=== PATIENT | male | born 1995 | race Caucasian/White ===

== ENCOUNTER 2022-01-16 14:29 | Emergency (ER) | payer BC, SELFPAY ==
[2022-01-16 14:42] VITALS: BP 118/74; PULSE 80; RESP 16; TEMP 37.1; O2SAT 99
--- NOTE | 2022-01-16 14:46 | ED.URI ---
HPI - URI/Sore Throat General Chief Complaint: Upper Respiratory Infection Stated Complaint: congestion, cough,runny nose, headache Time Seen by Provider: 01/16/22 14:45 Source: patient, RN notes reviewed and old records reviewed Mode of arrival: ambulatory Limitations: no limitations History of Present Illness HPI Narrative: 26-year-old male presents to [facility] with complaints of chest and nasal congestion, productive cough and some headache which started yesterday. Patient states he is taking ibuprofen and cough drops for his symptoms. Patient has been COVID vaccinated but has not had Flu shot this year.He states that he was at an event this past weekend in [place] at his sisters wedding, concerned may of been exposed to COVID or Flu. Patient reports that he does have some history of seasonal allergies and has had previous strep throat. Related Data Allergies Allergy/AdvReac Type Severity Reaction Status Date / Time No Known Allergies Allergy Verified 01/16/22 14:40 Review of Systems Review of Systems: CONSTITUTIONAL: Positive for low grade fever, chills, or sweats. EYES: Denies visual changes, redness, or discharge. ENT: Positive for rhinorrhea, congestion, sore throat, no otalgia. CARDIOVASCULAR: Denies chest pain, palpitations, or edema. RESPIRATORY: Positive for cough or dyspnea. GASTROINTESTINAL: Denies abdominal pain, nausea, vomiting, or diarrhea. GENITOURINARY: Denies dysuria or hematuria. SKIN: Denies rash or itching. MUSCULOSKELETAL: Denies back pain, joint pain, or myalgia. NEUROLOGIC: Positive for headache, no numbness, or weakness. PSYCHIATRIC: Denies anxiety or depression. All systems reviewed & are unremarkable except as noted in HPI and below [facility] Past Medical History Medical History (Updated 01/16/22 @ 15:28 by Sheryl Spicer NP) Depression Seasonal allergies Surgical History Surgical History (Updated 01/16/22 @ 15:08 by Sheryl Spicer NP) History of testicular surgery for testicular torsion Social History Social History (Updated 01/16/22 @ 15:08 by Sheryl Spicer NP) Smoking status: Never smoker Alcohol intake: current Alcohol use details: social Substance use type: does not use Gender identity (if verbalized by the patient): Male Comments At time of signature, agree with nursing past medical, surgical, social and family history. There is no relevant family history pertinent to the presenting complaint Exam Narrative: GENERAL: Well-appearing, well-nourished, and in no acute distress. HEAD: Normocephalic, atraumatic. EYES: PERRLA and EOMI. ENT: Nares red with clear rhinorrhea no epistaxis. Mucous membranes moist. TM's normal with good light reflex, throat red with no lesions or exudate, tonsils swollen and red NECK: Supple.positive for lymphadenopathy CHEST: Clear to auscultation. No respiratory distress. HEART: Regular rate and rhythm. No murmur heard. Normal peripheral pulses. ABDOMEN: Soft, nontender, nondistended, normal active bowel sounds. EXTREMITIES: Normal range of motion. No edema. SKIN: Warm, dry, no rash. NEURO: No focal deficits. Alert and oriented x3. Course Course Level of Care: Express Care Visit MDM - URI/Sore Throat Differential Diagnosis Differential diagnosis: Likely upper respiratory infection, sinusitis, viral infection, influenza and other Medical Records Attestation: I reviewed the patient's medical records. Lab Data Attestation: I reviewed the patient's lab results. Lab results narrative: strep screen negative, influenza A negative, influenza B negative,Covid antigen negative. Critical Care Time Critical Care Time Critical Care Time: No Discharge Plan Discharge Clinical Impression: Acute tonsillitis Qualifiers: Pharyngitis/tonsillitis etiology: unspecified etiology Qualified Code(s): J03.90 - Acute tonsillitis, unspecified Upper respiratory infection Qualifiers: URI type: unspecified URI Qualified Code(s): J06.9 - A
== END 2022-01-16 15:30 | disposition home or self-care (01) ==
PROVIDERS: Emergency Provider Registered Nurse; PCP Emergency Medicine
DX: J03.90 Acute tonsillitis, unspecified (principal); J06.9 Acute upper respiratory infection, unspecified; Z20.822 Contact with and (suspected) exposure to COVID-19
CPT/HCPCS: 87081; 87426; 87804; 87880; 99213; C9803; G0463